=== PATIENT | female | born 1980 ===

== ENCOUNTER 2017-05-08 18:48 | Inpatient (IN) | payer BC ==
[~2017-05-08] VITALS: Ht 160 cm; Wt 94.0 kg
--- NOTE | 2017-05-10 02:00 | PR ---
[facility] [address] [place], [place] [address] Signed Progress Notes IP Datetime Report Generated by CPN: 05/10/2017 02:00 PROGRESS NOTES: [id number] Impression: Reassuring heart rate Procedures: Intrauterine Pressure Catheter; Sterile Vag Exam; Epidural Placement Plan: Anticipate Vaginal Delivery Informed Consent Obtain: Vaginal Delivery VITAL SIGNS: [id number] Vital Signs: Reviewed EXAM: [id number] Dilatation: 10.0 Effacement: 100 Station: 0 Uterine Contractions: every three minutes MEMBRANES: [id number] Membrane Status: Ruptured Amniotic Fluid Color: Clear Comments: trial of pushing started. Patient not feeling much. Epidural very effective Fetus A: [id number] FHR Baseline: 120's Variability: Moderate 6-25bpm Accelerations: 15X15 Decelerations: Early FHR Category: Category I Presentation: Vertex Comments on Fetus A: reactive Fetus B: [id number] Signing Physician: Tana Rahman MD Copies: ~ *Electronically Signed* 05/10/17 0200 TANA RAHMAN MD PATIENT NAME: PAYTON DOTSON PROGRESS NOTE DATE OF : 80 PHYSICIAN: TANA RAHMAN MD RPT #: [id number] REPORT IS CONFIDENTIAL AND NOT TO BE RELEASED WITHOUT AUTHORIZATION
--- NOTE | 2017-05-10 07:34 | PR ---
[facility] [address] [facility] [place], [place] [address] Signed PP Progress Notes Datetime Report Generated by CPN: 05/10/2017 07:34 SUBJECTIVE: [id number] Pain: Within normal limits Nausea/Vomiting: Denies Flatus: Yes Vital Signs: [id number] Vital Signs: Reviewed EXAM: [id number] Cardiovascular: Normal Respiratory: Normal Abdomen/Uterus: Normal Lochia: Normal Vulva/Perineum: Normal Breasts: Normal CVA Tenderness: Normal Extremities: Normal Incision: Not Applicable Progress: Not Applicable IMPRESSION/PLAN/PROCEDURES: [id number] Impression: Normal progression Plan: Continue present management; consult Procedures: None Progress Notes: patient doing well. Baby doing well. Signing Physician: Tana Rahman MD Copies: ~ *Electronically Signed* 05/10/17 0734 TANA RAHMAN MD PATIENT NAME: PAYTON DOTSON PROGRESS NOTE DATE OF : 80 PHYSICIAN: TANA RAHMAN MD RPT #: [id number] REPORT IS CONFIDENTIAL AND NOT TO BE RELEASED WITHOUT AUTHORIZATION
--- NOTE | 2017-05-11 10:36 | PR ---
[facility] [address] [facility] [place], [place] [address] Signed PP Progress Notes Datetime Report Generated by CPN: 05/11/2017 10:36 SUBJECTIVE: [id number] Pain: Within normal limits Nausea/Vomiting: Denies Flatus: Yes Vital Signs: [id number] Vital Signs: Reviewed EXAM: [id number] Cardiovascular: Normal Respiratory: Normal Abdomen/Uterus: Normal Lochia: Normal Vulva/Perineum: Normal Breasts: Normal CVA Tenderness: Normal Extremities: Normal Incision: Not Applicable Progress: Not Applicable IMPRESSION/PLAN/PROCEDURES: [id number] Impression: Normal progression Plan: Continue present management Procedures: None Progress Notes: GBS positive. Doing well. Signing Physician: Tana Rahman MD Copies: ~ *Electronically Signed* 05/11/17 1036 TANA RAHMAN MD PATIENT NAME: PAYTON DOTSON PROGRESS NOTE DATE OF : 80 PHYSICIAN: TANA RAHMAN MD RPT #: [id number] REPORT IS CONFIDENTIAL AND NOT TO BE RELEASED WITHOUT AUTHORIZATION
--- NOTE | 2017-05-12 12:11 | PR ---
[facility] [address] [facility] [place], [place] [address] Signed PP Progress Notes Datetime Report Generated by CPN: 05/12/2017 12:11 SUBJECTIVE: [id number] Pain: Within normal limits Nausea/Vomiting: Denies Flatus: Yes Bowel Movement: Yes Vital Signs: [id number] Vital Signs: Reviewed EXAM: [id number] Cardiovascular: Normal Respiratory: Normal Abdomen/Uterus: Normal Lochia: Normal Vulva/Perineum: Normal Breasts: Normal CVA Tenderness: Normal Extremities: Normal Incision: Not Applicable Progress: Not Applicable IMPRESSION/PLAN/PROCEDURES: [id number] Impression: Normal progression; Induced Hypertension Plan: Discharge Procedures: None Progress Notes: patient ok for discharge home. To continue on labetalol Signing Physician: Tana Rahman MD Copies: ~ *Electronically Signed* 05/12/17 1211 TANA RAHMAN MD PATIENT NAME: PAYTON DOTSON PROGRESS NOTE DATE OF : 80 PHYSICIAN: TANA RAHMAN MD RPT #: [id number] REPORT IS CONFIDENTIAL AND NOT TO BE RELEASED WITHOUT AUTHORIZATION
== END 2017-05-12 12:20 | disposition home or self-care (01) | DRG 774 ==
LOC: FBC 05-09 06:17
PROVIDERS: ADMIT Obstetrics & Gynecology
PROC: 3E033VJ Introduction of Other Hormone into Peripheral Vein, Percutaneous Approach (ICD-10-PCS; principal; 2017-05-10)
PROC: 10E0XZZ Delivery of Products of Conception, External Approach (ICD-10-PCS; principal; 2017-05-10)
PROC: 0W8NXZZ Division of Female Perineum, External Approach (ICD-10-PCS; principal; 2017-05-10)
PROC: 0KQM0ZZ Repair Perineum Muscle, Open Approach (ICD-10-PCS; principal; 2017-05-10)
PROC: 00HU33Z Insertion of Infusion Device into Spinal Canal, Percutaneous Approach (ICD-10-PCS; 2017-05-10)
PROC: 3E0R3BZ Introduction of Anesthetic Agent into Spinal Canal, Percutaneous Approach (ICD-10-PCS; 2017-05-10)
DX: O15.1 Eclampsia complicating labor (principal); O13.4 Gestational [pregnancy-induced] hypertension without significant proteinuria, complicating childbirth; Z3A.38 38 weeks gestation of pregnancy; Z37.0 Single live birth; O24.429 Gestational diabetes mellitus in childbirth, unspecified control; O99.824 Streptococcus B carrier state complicating childbirth; O66.0 Obstructed labor due to shoulder dystocia; O70.1 Second degree perineal laceration during delivery
CPT/HCPCS: 01960; 36415; 82565; 84450; 84520; 84550; 85025; 85027; J1644; J2540; J2590; J2795; J7120